=== PATIENT | female | born 1935 | race Caucasian/White ===

== ENCOUNTER 2017-12-17 13:47 | Emergency (ER) | payer MEDICARE ==
[2017-12-17] MEDS ORDERED: 0.9 % SODIUM CHLORIDE 1,000 ML BAG IV ONE (14:48)
[2017-12-17 14:50] LABS: INFLUENZA A NEGATIVE (NEGATIVE); INFLUENZA B NEGATIVE (NEGATIVE)
[2017-12-17 15:55] LABS: BASO % 0.4 % (0-6); EOS % 0.4 % (0-6); GRAN % 77.2 % (47-80); HEMATOCRIT 42.3 % (35.0-47.0); HEMOGLOBIN 14.8 gm/dl (11.6-16.0); LYMPH % 16.3 % (16-45); MEAN CELL VOLUME 84.9 fl (81-97); MEAN CORPUSCULAR HEMOGLOBIN 29.7 pg (27-33); MEAN PLATELET VOLUME 9.5 fl (7.4-10.4); MONO % 5.7 % (0-9); PLATELET COUNT 244 K/uL (130-400); RED BLOOD COUNT 4.98 M/uL (3.80-5.40); RED CELL DISTRIBUTION WIDTH 13.2 % (11.5-14.5); WHITE BLOOD COUNT W/O DIFF 7.2 K/uL (4.2-12.2)
[2017-12-17 16:08] LABS: BLOOD UREA NITROGEN 16 mg/dL (8-23); CREATININE 0.7 mg/dL (0.5-0.9); EST GLOMERULAR FILTRATION RATE > 60 mL/min
[2017-12-17 16:09] LABS: TOTAL PROTEIN 7.2 g/dL (6.6-8.7)
[2017-12-17 16:11] LABS: GLUCOSE,RANDOM 94 mg/dL (74-109)
[2017-12-17 16:13] LABS: ALT/SGPT 11 U/L (<33); AST/SGOT 18 U/L (10.0-35.0)
[2017-12-17 16:14] LABS: ALB/GLOB RATIO 1.5 (1.1-1.8); ALBUMIN 4.3 g/dL (4.0-5.0); ALKALINE PHOSPHATASE 59 U/L (35-104); LIPASE 22 U/L (13-60)
[2017-12-17] MEDS ORDERED: PROMETHAZINE HCL 6.25 MG in 0.9 % SODIUM CHLORIDE 100ML 100 ML IVPB ONE (16:14)
--- NOTE | 2017-12-17 16:14 | Emergency Department Record ---
History of Present Illness - General Chief complaint: Nausea, Vomiting, Diarrhea Stated complaint: COUGH,WEAKNESS,VOMITTING Time Seen by Provider: 12/17/17 14:40 Source: Patient Mode of Arrival: Ambulatory Limitations: No limitations - History of Present Illness Initial comments: pt had diarrhea for 3 wks then got better for a week then got worse again. she has also had n/v. MD complaint: Diarrhea, Nausea, Vomiting Severity: Mild Consistency: Getting worse Associated Symptoms: Malaise, Nausea/vomiting - Related Data Previous Rx's Medication Instructions Recorded Promethazine HCl [Phenergan] 12.5 mg PO BID #10 tablet 12/17/17 Allergies Allergy/AdvReac Type Severity Reaction Status Date / Time Sulfa (Sulfonamide Allergy HIVES Verified 12/17/17 14:36 Antibiotics) Travel Screening - Travel/Exposure Within Last 30 Days Have you traveled within the last 30 days?: No - Travel/Exposure Within Last Year Have you traveled outside the [place] in the last year?: No - Additonal Travel Details Have you been exposed to anyone with a communicable illness?: No Review of Systems Reviewed: No additional complaints except as noted below Constitutional: Reports: As per HPI. Denies: Chills, Fever, Malaise, Night sweats, Weakness, Weight change Eyes: Reports: As per HPI. Denies: Eye discharge, Eye pain, Photophobia, Vision change ENT: Reports: As per HPI. Denies: Congestion, Dental pain, Ear pain, Epistaxis , Hearing loss, Throat pain Respiratory: Reports: As per HPI. Denies: Cough, Dyspnea, Hemoptysis, Stridor, Wheezes Cardiovascular: Reports: As per HPI. Denies: Arrhythmia, Chest pain, Dyspnea on exertion, Edema, Murmurs, Orthopnea, Palpitations, Paroxysmal nocturnal dyspnea, Rheumatic Fever, Syncope Endocrine: Reports: As per HPI. Denies: Fatigue, Heat or cold intolerance, Polydipsia, Polyuria Gastrointestinal: Reports: As per HPI. Denies: Abdominal pain, Constipation, Diarrhea, Hematemesis, Hematochezia, Melena, Nausea, Vomiting Genitourinary: Reports: As per HPI. Denies: Abnormal menses, Discharge, Dyspareunia, Dysuria, Frequency, Hematuria, Incontinence, Retention, Urgency Musculoskeletal: Reports: As per HPI. Denies: Arthralgia, Back pain, Gout, Joint swelling, Myalgia, Neck pain Skin: Reports: As per HPI. Denies: Bruising, Change in color, Change in hair/ nails, Lesions, Pruritus, Rash Neurological: Reports: As per HPI. Denies: Abnormal gait, Confusion, Headache, Numbness, Paresthesias, Seizure, Tingling, Tremors, Vertigo, Weakness Psychiatric: Reports: As per HPI. Denies: Anxiety, Auditory hallucinations, Depression, Homicidal thoughts, Suicidal thoughts, Visual hallucinations Hematological/Lymphatic: Reports: As per HPI. Denies: Anemia, Blood Clots, Easy bleeding, Easy bruising, Swollen glands Past Medical History - SOCIAL HISTORY Smoking Status: Never smoker Alcohol Use: None Drug Use: None - RESPIRATORY Hx Respiratory Disorders: No - CARDIOVASCULAR Hx Cardio Disorders: Yes Hx Heart Attack: Yes (unsure) - NEURO Hx Neuro Disorders: No - GI Hx GI Disorders: Yes Hx Reflux: Yes - Hx Genitourinary Disorders: No - ENDOCRINE Hx Endocrine Disorders: No - MUSCULOSKELETAL Hx Musculoskeletal Disorders: Yes - PSYCH Hx Psych Problems: No - HEMATOLOGY/ONCOLOGY Hx Hematology/Oncology Disorders: No Family Medical History Any Significant Family History?: Yes Hx Cancer: Brother/Sister, Grandparents Hx Diabetes: Mother, Grandparents Physical Exam - General General Appearance: Alert, Oriented x3, Cooperative, Mild distress - Head Head exam: Normal inspection - Eye Eye exam: Normal appearance, PERRL, EOMI Pupils: Normal accommodation - ENT ENT exam: Normal exam, Mucous membranes moist, Normal external ear exam, Normal orophraynx Ear exam: Normal external inspection. negative: External canal tenderness Nasal Exam: Normal inspection. negative: Discharge, Sinus tenderness Mouth exam: Normal external inspection, Tongue normal Teeth exam: Normal inspection. negative: Dental caries Throat exam: Normal inspection. negative: Tonsillar erythema, Tonsillar exudate - Neck Neck exam: Normal inspection, Full ROM. negative: Tenderness - Respiratory Respiratory exam: Normal lung sounds bilaterally. negative: Respiratory distress - Cardiovascular Cardiovascular Exam: Regular rate, Normal rhythm, Normal heart sounds - GI/Abdominal GI/Abdominal exam: Soft, Normal bowel sounds. negative: Tenderness - Rectal Rectal exam: Deferred - exam: Deferred - Extremities Extremities exam: Normal inspection, Full ROM, Normal capillary refill. negative: Tenderness - Back Back exam: Reports: Normal inspection, Full ROM. Denies: Muscle spasm, Rash noted, Tenderness - Neurological Neurological exam: Alert, CN II-XII intact, Normal gait, Oriented X3 - Psychiatric Psychiatric exam: Normal affect, Normal mood - Skin Skin exam: Dry, Intact, Normal color, Warm Course Vital Signs 12/17/17 14:30 Temperature 98.5 F Pulse Rate [ 100 H Pulse Ox Probe] Respiratory 16 Rate Blood Pressure 128/96 [Left Arm] Pulse Ox 98 - Reevaluation(s) Reevaluation #1: 12/17/17 17:24 pt feels much better Medical Decision Making - Lab Data Result diagrams: 12/17/17 15:35 12/17/17 15:35 Lab Results 12/17/17 12/17/17 Range/Units 14:35 15:35 WBC 7.2 (4.2-12.2) K/uL RBC 4.98 (3.80-5.40) M/uL Hgb 14.8 (11.6-16.0) gm/dl Hct 42.3 (35.0-47.0) % MCV 84.9 (81-97) fl MCH 29.7 (27-33) pg MCHC 35.0 (32-36) g/dl RDW 13.2 (11.5-14.5) % Plt Count 244 (130-400) K/uL MPV 9.5 (7.4-10.4) fl Gran % 77.2 (47-80) % Lymphocytes % 16.3 (16-45) % Monocytes % 5.7 (0-9) % Eosinophils % 0.4 (0-6) % Basophils % 0.4 (0-6) % Influenza Type A Ag Negative (NEGATIVE) Influenza Type B Ag Negative (NEGATIVE) Disposition Disposition: Discharge Clinical Impression: Nausea & vomiting Qualifiers: Vomiting type: unspecified Vomiting Intractability: non-intractable Qualified Code(s): R11.2 - Nausea with vomiting, unspecified Diarrhea Qualifiers: Diarrhea type: unspecified type Qualified Code(s): R19.7 - Diarrhea, unspecified Disposition: Home, Self-Care Condition: (1) Good Instructions: Acute Nausea and Vomiting (ED), Acute Diarrhea (ED) Additional Instructions: follow up with family doctor. return sooner if worse. push fluids Prescriptions: Promethazine HCl [Phenergan] 12.5 mg PO BID #10 tablet Quality - Quality Measures Quality Measures: N/A - Blood Pressure Screening Does Patient Have Any of the Following: No Blood Pressure Classification: Pre-Hypertensive BP Reading Systolic Measurement: 160 Diastolic Measurement: 84 Screening for High Blood Pressure: < Pre-Hypertensive BP, F/U Documented > [ [id number]] Pre-Hypertensive Follow-up Interventions: Follow-up with rescreen every year.
[2017-12-17 16:49] LABS: URINE APPEARANCE CLEAR; URINE BILIRUBIN SMALL (NEGATIVE); URINE BLOOD SMALL (NEGATIVE); URINE COLOR YELLOW; URINE GLUCOSE (UA) NEGATIVE (NEGATIVE); URINE KETONE 40 mg/dL (NEGATIVE); URINE LEUKOCYTE ESTERASE TRACE (NEGATIVE); URINE NITRITE NEGATIVE (NEGATIVE); URINE PROTEIN TRACE (NEGATIVE); URINE UROBILINOGEN 0.2 E.U./dL (0.20 - 1.00)
[2017-12-17 16:59] LABS: URINE BACTERIA FEW
--- NOTE | 2017-12-18 07:57 | RADIOLOGY REPORT ---
EXAM: CHEST, TWO VIEWS HISTORY: NAUSEA AND VOMITING. TECHNIQUE: Two views of the chest were obtained. Comparison: 05/06/16. FINDINGS: The heart is not enlarged. There is a moderate sized hiatal hernia. The mediastinum otherwise is unremarkable. No infiltrate or vascular congestion identified. IMPRESSION: 1. MODERATE SIZED HIATAL HERNIA. 2. NO ACUTE CARDIAC OR PULMONARY ABNORMALITY. JOB NUMBER: [id number] MTDD
== END 2017-12-17 18:49 | disposition home or self-care (01) ==
LOC: ER 13:47
DX: R11.2 Nausea with vomiting, unspecified (principal); R19.7 Diarrhea, unspecified; I25.2 Old myocardial infarction
CPT/HCPCS: 71046; 80053; 81001; 83690; 85025; 87400; 96365; 99284; J2550; J7030

== ENCOUNTER 2018-09-02 13:32 | Inpatient (IN) | payer MEDICARE ==
[2018-09-02] MEDS ORDERED: 0.9% SODIUM CHLORIDE 250ML BAG IV ONE (14:14)
[2018-09-02] MEDS ORDERED: ONDANSETRON HCL IV 4 MG/2 ML VIAL IV ONE (14:14)
[2018-09-02 14:32] LABS: BASO % 0.3 % (0-6); EOS % 0.3 % (0-6); HEMATOCRIT 45.7 % (35.0-47.0); HEMOGLOBIN 16.1 gm/dl (11.6-16.0); LYMPH % 9.7 % (16-45); MEAN CELL VOLUME 86.9 fl (81-97); MEAN CORPUSCULAR HEMOGLOBIN 30.6 pg (27-33); MEAN CORPUSCULAR HGB CONC 35.2 g/dl (32-36); MEAN PLATELET VOLUME 9.2 fl (7.4-10.4); MONO % 3.4 % (0-9); PLATELET COUNT 253 K/uL (130-400); RED BLOOD COUNT 5.26 M/uL (3.80-5.40); RED CELL DISTRIBUTION WIDTH 13.3 % (11.5-14.5); URINE APPEARANCE CLEAR; URINE BILIRUBIN MODERATE (NEGATIVE); URINE BLOOD MODERATE (NEGATIVE); URINE COLOR YELLOW; URINE GLUCOSE (UA) NEGATIVE (NEGATIVE); URINE LEUKOCYTE ESTERASE NEGATIVE (NEGATIVE); URINE NITRITE NEGATIVE (NEGATIVE); URINE UROBILINOGEN 0.2 E.U./dL (0.20 - 1.00); WHITE BLOOD COUNT W/O DIFF 10.3 K/uL (4.2-12.2)
[2018-09-02 14:35] LABS: URINE KETONE 80 mg/dL (NEGATIVE)
[2018-09-02 14:44] LABS: URINE EPITHELIAL CELLS 0 - 2 (FEW); URINE WBC 0 - 2 (0-2/hpf)
[2018-09-02 14:46] LABS: BLOOD UREA NITROGEN 19 mg/dL (8-23); CREATININE 0.8 mg/dL (0.5-0.9); EST GLOMERULAR FILTRATION RATE > 60 mL/min
[2018-09-02 14:47] LABS: TOTAL PROTEIN 7.7 g/dL (6.6-8.7)
[2018-09-02 14:49] LABS: GLUCOSE,RANDOM 124 mg/dL (74-109)
[2018-09-02 14:51] LABS: ALB/GLOB RATIO 1.4 (1.1-1.8); ALBUMIN 4.5 g/dL (4.0-5.0); ALKALINE PHOSPHATASE 61 U/L (35-104); ALT/SGPT 14 U/L (<33); AST/SGOT 19 U/L (10.0-35.0); LIPASE 45 U/L (13-60)
[2018-09-02] MEDS ORDERED: PROMETHAZINE HCL 6.25 MG in 0.9 % SODIUM CHLORIDE 100ML 100 ML IVPB ONE (18:31)
--- NOTE | 2018-09-02 18:38 | Emergency Department Record ---
History of Present Illness - General Chief complaint: Nausea, Vomiting, Diarrhea Stated complaint: VOMITING,NAUSEA Time Seen by Provider: 09/02/18 13:56 Source: Patient, Family Mode of Arrival: Ambulatory Limitations: No limitations - History of Present Illness Initial comments: pt has been having abd pain,n,v all week. she feels like she is having cramps in her abd. she is very anxious. her daughter thinks it might be her gb as it runs in the family. MD complaint: Abdominal pain, Nausea, Vomiting Onset/Timin -: Days(s) Associated Abdominal Pain: Yes Location: Periumbilcal Quality: Aching, Cramping Consistency: Constant, Getting worse Improves with: None Worsens with: Eating Associated Symptoms: Loss of appetite, Nausea/vomiting, Weakness - Related Data Allergies Allergy/AdvReac Type Severity Reaction Status Date / Time Sulfa (Sulfonamide Allergy HIVES Verified 09/02/18 13:49 Antibiotics) Travel Screening - Travel/Exposure Within Last 30 Days Have you traveled within the last 30 days?: No - Travel/Exposure Within Last Year Have you traveled outside the [place] in the last year?: No - Additonal Travel Details Have you been exposed to anyone with a communicable illness?: No - Travel Symptoms Symptom Screening: None Review of Systems Reviewed: No additional complaints except as noted below Constitutional: Reports: As per HPI. Denies: Chills, Fever, Malaise, Night sweats, Weakness, Weight change Eyes: Reports: As per HPI. Denies: Eye discharge, Eye pain, Photophobia, Vision change ENT: Reports: As per HPI. Denies: Congestion, Dental pain, Ear pain, Epistaxis , Hearing loss, Throat pain Respiratory: Reports: As per HPI. Denies: Cough, Dyspnea, Hemoptysis, Stridor, Wheezes Cardiovascular: Reports: As per HPI. Denies: Arrhythmia, Chest pain, Dyspnea on exertion, Edema, Murmurs, Orthopnea, Palpitations, Paroxysmal nocturnal dyspnea, Rheumatic Fever, Syncope Endocrine: Reports: As per HPI. Denies: Fatigue, Heat or cold intolerance, Polydipsia, Polyuria Gastrointestinal: Reports: As per HPI, Abdominal pain, Nausea, Vomiting. Denies : Constipation, Diarrhea, Hematemesis, Hematochezia, Melena Genitourinary: Reports: As per HPI. Denies: Abnormal menses, Discharge, Dyspareunia, Dysuria, Frequency, Hematuria, Incontinence, Retention, Urgency Musculoskeletal: Reports: As per HPI. Denies: Arthralgia, Back pain, Gout, Joint swelling, Myalgia, Neck pain Skin: Reports: As per HPI. Denies: Bruising, Change in color, Change in hair/ nails, Lesions, Pruritus, Rash Neurological: Reports: As per HPI. Denies: Abnormal gait, Confusion, Headache, Numbness, Paresthesias, Seizure, Tingling, Tremors, Vertigo, Weakness Psychiatric: Reports: As per HPI. Denies: Anxiety, Auditory hallucinations, Depression, Homicidal thoughts, Suicidal thoughts, Visual hallucinations Hematological/Lymphatic: Reports: As per HPI. Denies: Anemia, Blood Clots, Easy bleeding, Easy bruising, Swollen glands Past Medical History - SOCIAL HISTORY Smoking Status: Never smoker Alcohol Use: None Drug Use: None - RESPIRATORY Hx Respiratory Disorders: Yes Hx Pneumonia: Yes - CARDIOVASCULAR Hx Cardio Disorders: Yes Hx Heart Attack: Yes (unsure) - NEURO Hx Neuro Disorders: No - GI Hx GI Disorders: Yes Hx Reflux: Yes Hx Hiatal Hernia: Yes - Hx Genitourinary Disorders: No - ENDOCRINE Hx Endocrine Disorders: No - MUSCULOSKELETAL Hx Musculoskeletal Disorders: Yes - PSYCH Hx Psych Problems: No - HEMATOLOGY/ONCOLOGY Hx Hematology/Oncology Disorders: No Family Medical History Any Significant Family History?: No Hx Cancer: Brother/Sister, Grandparents Hx Diabetes: Mother, Grandparents Physical Exam - General General Appearance: Alert, Oriented x3, Cooperative, Mild distress - Head Head exam: Normal inspection - Eye Eye exam: Normal appearance, PERRL, EOMI Pupils: Normal accommodation - ENT ENT exam: Normal exam, Mucous membranes dry, Normal external ear exam, Normal orophraynx Ear exam: Normal external inspection. negative: External canal tenderness Nasal Exam: Normal inspection. negative: Discharge, Sinus tenderness Mouth exam: Normal external inspection, Tongue normal Teeth exam: Normal inspection. negative: Dental caries Throat exam: Normal inspection. negative: Tonsillar erythema, Tonsillar exudate - Neck Neck exam: Normal inspection, Full ROM. negative: Tenderness - Respiratory Respiratory exam: Normal lung sounds bilaterally. negative: Respiratory distress - Cardiovascular Cardiovascular Exam: Normal rhythm, Normal heart sounds, Tachycardia - GI/Abdominal GI/Abdominal exam: Soft, Normal bowel sounds, Tenderness (diffusely and ruq) - Rectal Rectal exam: Deferred - exam: Deferred - Extremities Extremities exam: Normal inspection, Full ROM, Normal capillary refill. negative: Tenderness - Back Back exam: Reports: Normal inspection, Full ROM. Denies: Muscle spasm, Rash noted, Tenderness - Neurological Neurological exam: Alert, CN II-XII intact, Normal gait, Oriented X3 - Psychiatric Psychiatric exam: Normal affect, Normal mood - Skin Skin exam: Dry, Intact, Normal color, Warm Course Vital Signs 09/02/18 09/02/18 13:37 17:21 Temperature 97.7 F Pulse Rate 118 H Pulse Rate [ 110 H Pulse Ox Probe] Respiratory 20 16 Rate Blood Pressure 153/102 Blood Pressure 144/63 [Left Arm] Pulse Ox 99 96 - Reevaluation(s) Reevaluation #1: 09/02/18 18:46 pt continued to be uncomfortable and anxious w nausea Reevaluation #2: 09/02/18 18:47 ct shows early diverticulitis,, distended gb w mild intra and hepatic biliary ductal dilatation. no stones visualized. Medical Decision Making - Lab Data Result diagrams: 09/02/18 14:25 09/02/18 14:25 Lab Results 09/02/18 09/02/18 09/02/18 Range/Units 14:25 14:25 14:25 WBC 10.3 (4.2-12.2) K/uL RBC 5.26 (3.80-5.40) M/uL Hgb 16.1 H (11.6-16.0) gm/dl Hct 45.7 (35.0-47.0) % MCV 86.9 (81-97) fl MCH 30.6 (27-33) pg MCHC 35.2 (32-36) g/dl RDW 13.3 (11.5-14.5) % Plt Count 253 (130-400) K/uL MPV 9.2 (7.4-10.4) fl Neutrophils % 84.0 H (47-80) % Band Neutrophils % 0.0 (0-5) % Lymphocytes % 9.7 L (16-45) % Monocytes % 3.4 (0-9) % Eosinophils % 0.3 (0-6) % Basophils % 0.3 (0-6) % Lymphocytes 11.0 L (16-45) % Monocytes 4.0 (0-9) % Basophils 0.0 (0-6) % Eosinophil Count 0.0 (0-6) % Sodium 139 (136-145) mmol/L Potassium 4.3 (3.4-4.5) mmol/L Chloride 101 (98-107) mmol/L Carbon Dioxide 21.0 L (22-29) mmol/L Anion Gap 17.0 H (7-16) BUN 19 (8-23) mg/dL Creatinine 0.8 (0.5-0.9) mg/dL Estimated GFR > 60 mL/min Random Glucose 124 H (74-109) mg/dL Lactic Acid (0.5-2.2) mmol/L Calcium 9.5 (8.8-10.2) mg/dL Total Bilirubin 0.80 (0.2-1.0) mg/dL AST 19 (10.0-35.0) U/L ALT 14 (<33) U/L Alkaline Phosphatase 61 (35-104) U/L NT-Pro-B Natriuret Pep (<450) pg/mL Total Protein 7.7 (6.6-8.7) g/dL Albumin 4.5 (4.0-5.0) g/dL Globulin 3.2 (1.4-4.8) gm/dL Albumin/Globulin Ratio 1.4 (1.1-1.8) Lipase 45 (13-60) U/L Urine Color Yellow Urine Appearance Clear Urine pH 6.0 (5.0-8.0) Ur Specific [place] >= 1.030 (1.002-1.030) Urine Protein 30 mg/dl H (NEGATIVE) Urine Glucose (UA) Negative (NEGATIVE) Urine Ketones 80 mg/dl H (NEGATIVE) Urine Blood Moderate (NEGATIVE) Urine Nitrite Negative (NEGATIVE) Urine Bilirubin Moderate H (NEGATIVE) Urine Urobilinogen 0.2 (0.20 - 1.00) E.U./dL Ur Leukocyte Esterase Negative (NEGATIVE) Urine RBC 7 - 10 (NONE SEEN) Urine WBC 0 - 2 (0-2/hpf) Ur Epithelial Cells 0 - 2 (FEW) 09/02/18 09/02/18 Range/Units 14:25 14:25 WBC (4.2-12.2) K/uL RBC (3.80-5.40) M/uL Hgb (11.6-16.0) gm/dl Hct (35.0-47.0) % MCV (81-97) fl MCH (27-33) pg MCHC (32-36) g/dl RDW (11.5-14.5) % Plt Count (130-400) K/uL MPV (7.4-10.4) fl Neutrophils % (47-80) % Band Neutrophils % (0-5) % Lymphocytes % (16-45) % Monocytes % (0-9) % Eosinophils % (0-6) % Basophils % (0-6) % Lymphocytes (16-45) % Monocytes (0-9) % Basophils (0-6) % Eosinophil Count (0-6) % Sodium (136-145) mmol/L Potassium (3.4-4.5) mmol/L Chloride (98-107) mmol/L Carbon Dioxide (22-29) mmol/L Anion Gap (7-16) BUN (8-23) mg/dL Creatinine (0.5-0.9) mg/dL Estimated GFR mL/min Random Glucose (74-109) mg/dL Lactic Acid 1.4 (0.5-2.2) mmol/L Calcium (8.8-10.2) mg/dL Total Bilirubin (0.2-1.0) mg/dL AST (10.0-35.0) U/L ALT (<33) U/L Alkaline Phosphatase (35-104) U/L NT-Pro-B Natriuret Pep 65.99 (<450) pg/mL Total Protein (6.6-8.7) g/dL Albumin (4.0-5.0) g/dL Globulin (1.4-4.8) gm/dL Albumin/Globulin Ratio (1.1-1.8) Lipase (13-60) U/L Urine Color Urine Appearance Urine pH (5.0-8.0) Ur Specific [place] (1.002-1.030) Urine Protein (NEGATIVE) Urine Glucose (UA) (NEGATIVE) Urine Ketones (NEGATIVE) Urine Blood (NEGATIVE) Urine Nitrite (NEGATIVE) Urine Bilirubin (NEGATIVE) Urine Urobilinogen (0.20 - 1.00) E.U./dL Ur Leukocyte Esterase (NEGATIVE) Urine RBC (NONE SEEN) Urine WBC (0-2/hpf) Ur Epithelial Cells (FEW) Disposition Disposition: Admit Clinical Impression: Diverticulitis, Biliary colic Disposition: Still a Patient at [facility] Decision to Admit: Admit from ER Decision to Admit Date: 09/02/18 Decision to Admit Time: 18:50 Quality - Quality Measures Quality Measures: N/A - Blood Pressure Screening Does Patient Have Any of the Following: Active Dx of HTN Blood Pressure Classification: Hypertensive Reading Systolic Measurement: 153 Diastolic Measurement: 102 Screening for High Blood Pressure: Patient Exclusion, Hx of HTN [G9744]
[2018-09-02] MEDS ORDERED: TRAMADOL HCL 50 MG TABLET PO ONE (18:55)
[2018-09-02] MEDS ORDERED: 0.9 % SODIUM CHLORIDE 1000ML 1,000 ML IV PRN (19:18)
[2018-09-02] MEDS ORDERED: MORPHINE SULFATE 10 MG/ML VIAL IVP PRN (19:18)
[2018-09-02] MEDS: ACETAMINOPHEN 325 MG TAB PO PRN (20:20)
[2018-09-02] MEDS: AMPICILLIN SODIUM/SULBACTAM NA 3 G in 0.9 % SODIUM CHLORIDE 100ML 100 ML IVPB SCH (20:20)
[2018-09-02] MEDS: GABAPENTIN 300 MG CAPSULE PO SCH ×2 (20:26→21:06)
[2018-09-02] MEDS: TRAMADOL HCL 50 MG TABLET PO SCH (21:06)
[2018-09-03] MEDS: AMPICILLIN SODIUM/SULBACTAM NA 3 G in 0.9 % SODIUM CHLORIDE 100ML 100 ML IVPB SCH ×3 (03:23→18:53)
[2018-09-03] MEDS: PANTOPRAZOLE SODIUM 40 MG TABLET PO SCH (06:21)
[2018-09-03] MEDS: ONDANSETRON HCL IV 4 MG/2 ML VIAL IVP PRN ×2 (06:43→10:31)
[2018-09-03 06:45] LABS: BASO % 0.5 % (0-6); EOS % 1.8 % (0-6); GRAN % 63.9 % (47-80); HEMATOCRIT 40.5 % (35.0-47.0); HEMOGLOBIN 13.7 gm/dl (11.6-16.0); LYMPH % 26.8 % (16-45); MEAN CELL VOLUME 89.4 fl (81-97); MEAN CORPUSCULAR HEMOGLOBIN 30.2 pg (27-33); MEAN CORPUSCULAR HGB CONC 33.8 g/dl (32-36); MEAN PLATELET VOLUME 9.6 fl (7.4-10.4); PLATELET COUNT 198 K/uL (130-400); RED BLOOD COUNT 4.53 M/uL (3.80-5.40); RED CELL DISTRIBUTION WIDTH 13.6 % (11.5-14.5); WHITE BLOOD COUNT W/O DIFF 6.5 K/uL (4.2-12.2)
[2018-09-03 07:09] LABS: ALB/GLOB RATIO 1.3 (1.1-1.8); ALBUMIN 3.5 g/dL (4.0-5.0); ALKALINE PHOSPHATASE 49 U/L (35-104); ALT/SGPT 11 U/L (<33); AST/SGOT 17 U/L (10.0-35.0); BLOOD UREA NITROGEN 13 mg/dL (8-23); CREATININE 0.7 mg/dL (0.5-0.9); EST GLOMERULAR FILTRATION RATE > 60 mL/min; GLUCOSE,RANDOM 80 mg/dL (74-109); TOTAL PROTEIN 6.3 g/dL (6.6-8.7)
--- NOTE | 2018-09-03 07:52 | CT SCAN REPORT ---
EXAM: CT SCAN OF THE ABDOMEN AND PELVIS WITH CONTRAST HISTORY: DIFFUSE ABDOMINAL PAIN WITH NAUSEA AND LOOSE STOOLS. SICK FOR THE PAST SIX DAYS. TECHNIQUE: Standard CT imaging of the abdomen and pelvis was performed with contrast. 100 ml of Omnipaque 300 were administered. Comparison: None. FINDINGS: There is mild dependent atelectasis at both lung bases. Coronary artery calcifications are present. There is a moderate sized hiatal hernia. A 9 mm cyst is present at the dome of the liver. The gallbladder is distended. There is mild intra and extrahepatic biliary ductal dilatation. There are calcified stones or pericholecystic inflammatory changes. The common bile duct measures up to 1 cm in diameter. There is no visible mass. The pancreas is normal. The spleen is normal size. A peripherally calcified splenic artery aneurysm is present and measures 1.4 x 1.2 cm. The adrenal glands are normal in size. There are tiny cortical cysts within both kidneys. A 0.7 cm hypodense area at the inferior pole of the right kidney measures greater density than expected for a simple cyst. This may simply represent a proteinaceous cyst. Follow-up is recommended. A 2 cm exophytic cyst is also noted at the lower pole of the right kidney. There is no acute urinary tract pathology. Atherosclerotic changes are present within the abdominal aorta with no aneurysm or dissection. There is no retroperitoneal lymphadenopathy. There are scattered diverticula throughout the colon and greatest within the sigmoid region. There is mild inflammation of diverticula within the proximal transverse colon region with adjacent fat stranding and mild wall thickening. The appearance is suspicious for developing acute diverticulitis. Wall thickening within the sigmoid region is likely artifactual due to incomplete distention. There are no surrounding inflammatory changes. There is no pneumoperitoneum or ascites. The uterus is surgically absent. The urinary bladder is normal. There are no acute osseous abnormalities. There is Grade 1 spondylolisthesis of L4 on L5 which appears degenerative in nature. Severe disk space narrowing is also noted at the L4-L5 level. IMPRESSION: 1. DISTENDED GALLBLADDER WITH MILD INTRA AND EXTRAHEPATIC BILIARY DUCTAL DILATATION OF UNCERTAIN ETIOLOGY. THESE FINDINGS COULD BE FURTHER ASSESSED WITH MRCP OR ERCP. 2. DIFFUSE COLONIC DIVERTICULOSIS WITH SUSPECTED MILD ACUTE DIVERTICULITIS INVOLVING THE PROXIMAL TRANSVERSE COLON REGION. WALL THICKENING THROUGHOUT THE REMAINDER OF THE COLON IS BELIEVED ARTIFACTUAL DUE TO INCOMPLETE DISTENTION. 3. A 7 MM MILDLY HYPERDENSE AREA IS PRESENT AT THE INFERIOR POLE OF THE RIGHT KIDNEY. THIS MAY SIMPLY REPRESENT A PROTEINACEOUS CYST. THIS COULD BE FURTHER ASSESSED WITH MRI OR CT FOLLOW-UP. 4. ADDITIONAL SIMPLE BILATERAL RENAL CYSTS AND HEPATIC CYSTS. 5. CALCIFIED SPLENIC ARTERY ANEURYSM. 6. ADDITIONAL CHRONIC FINDINGS ABOVE. JOB NUMBER: [id number] MTDD
[2018-09-03] MEDS ORDERED: NITROGLYCERIN 0.4MG SL TABLET #25 BTL SL ONE (09:53)
[2018-09-03] MEDS ORDERED: HYDROMORPHONE HCL 2 MG/ML VIAL IVP PRN (10:18)
[2018-09-03] MEDS: DILTIAZEM 240 MG CAP CR PO SCH (10:56)
[2018-09-03] MEDS: TRAMADOL HCL 50 MG TABLET PO SCH ×2 (10:56→21:33)
[2018-09-03] MEDS: GABAPENTIN 300 MG CAPSULE PO SCH ×3 (10:57→21:32)
[2018-09-03] MEDS: ASPIRIN 81 MG TABEC PO SCH (11:42)
[2018-09-03] MEDS ORDERED: DEXAMETHASONE 4 MG/ML 1ML VIAL IVP ONE (14:00)
[2018-09-03] MEDS ORDERED: GLYCOPYRROLATE 0.2 MG/ML ML IV ONE (14:00)
[2018-09-03] MEDS ORDERED: ROCURONIUM BROMIDE 50MG/5ML VIAL IV ONE (14:00)
[2018-09-03] MEDS ORDERED: LIDOCAINE 2% MDV (20MG/ML) 20ML VIAL IV ONE (14:00)
[2018-09-03] MEDS ORDERED: ESMOLOL HCL 100 MG/10 ML ML IVP ONE (14:00)
[2018-09-03] MEDS ORDERED: NEOSTIGMINE 1 MG/1 ML,10ML VIAL IV ONE (14:00)
[2018-09-03] MEDS ORDERED: FENTANYL PF 100MCG/2ML VIAL IV ONE ×2 (14:00→16:03)
[2018-09-03] MEDS ORDERED: ONDANSETRON HCL IV 4 MG/2 ML VIAL IVP ONE (14:00)
[2018-09-03] MEDS ORDERED: SEVOFLURANE 250 ML INH ONE (14:00)
[2018-09-03] MEDS ORDERED: PROPOFOL 10 MG/ML VIAL IV ONE (14:00)
[2018-09-03] MEDS ORDERED: SUCCINYLCHOLINE 20 MG/ML 10ML IVP ONE (14:00)
--- NOTE | 2018-09-03 15:18 | History & Physical ---
History of Present Illness - Date of Service Date of Service for History & Physical: 09/03/18 - History of Present Illness Admitting Diagnosis: diverticulitis, biliary colic History of Present Illness: pt has been having abd pain,n,v all week. she feels like she is having cramps in her abd. she is very anxious. her daughter thinks it might be her gb as it runs in the family. Her history includes: pneumonia, possible SD hx (pt. unsure), GERD, hiatal hernia. In the ED, her vitals were: BP 153/102, T 97.7F, HR 118, RR 20, 99% on room air. Abd CT showed early diverticulitis, distended gallbladder with mild intra and hepatic biliary ductal dilatation, no stones. Pt. was admitted for IV antibiotics for diverticulitis, NPO at midnight, abdominal ultrasound ordered for the am. Dr. Jiménez was consulted for surgical evaluation. 09/03/18: 1000- Dr. Jiménez assessed pt. this morning and took her to OR for laparoscopic cholecystectomy. Surgery went as planned. Pt. returned to her room from PACU. She reports some abdominal pain (likely retained gas bubble from laproscope). Her vitals have remained stable. Per Dr. Jiménez, pt. can d/c home either tonight or tomorrow morning, when her pain is controlled. Ultram ordered for pain management. Clear fluid diet ordered. Travel Screening - Travel/Exposure Within Last 30 Days Have you traveled within the last 30 days?: No - Travel/Exposure Within Last Year Have you traveled outside the [place] in the last year?: No - Additonal Travel Details Have you been exposed to anyone with a communicable illness?: No - Travel Symptoms Symptom Screening: None Review of Systems Constitutional: Reports: As per HPI. Denies: Chills, Fever, Malaise, Night sweats, Weakness, Weight change Eyes: Reports: As per HPI. Denies: Eye discharge, Eye pain, Photophobia, Vision change ENT: Reports: As per HPI. Denies: Congestion, Dental pain, Ear pain, Epistaxis , Hearing loss, Throat pain Respiratory: Reports: As per HPI. Denies: Cough, Dyspnea, Hemoptysis, Stridor, Wheezes Cardiovascular: Reports: As per HPI. Denies: Arrhythmia, Chest pain, Dyspnea on exertion, Edema, Murmurs, Orthopnea, Palpitations, Paroxysmal nocturnal dyspnea, Rheumatic Fever, Syncope Endocrine: Reports: As per HPI. Denies: Fatigue, Heat or cold intolerance, Polydipsia, Polyuria Gastrointestinal: Reports: As per HPI, Abdominal pain, Nausea, Vomiting. Denies : Constipation, Diarrhea, Hematemesis, Hematochezia, Melena Genitourinary: Reports: As per HPI. Denies: Abnormal menses, Discharge, Dyspareunia, Dysuria, Frequency, Hematuria, Incontinence, Retention, Urgency Musculoskeletal: Reports: As per HPI. Denies: Arthralgia, Back pain, Gout, Joint swelling, Myalgia, Neck pain Skin: Reports: As per HPI. Denies: Bruising, Change in color, Change in hair/ nails, Lesions, Pruritus, Rash Neurological: Reports: As per HPI. Denies: Abnormal gait, Confusion, Headache, Numbness, Paresthesias, Seizure, Tingling, Tremors, Vertigo, Weakness Psychiatric: Reports: As per HPI. Denies: Anxiety, Auditory hallucinations, Depression, Homicidal thoughts, Suicidal thoughts, Visual hallucinations Hematological/Lymphatic: Reports: As per HPI. Denies: Anemia, Blood Clots, Easy bleeding, Easy bruising, Swollen glands Past Medical History - SOCIAL HISTORY Smoking Status: Never smoker Alcohol Use: None - RESPIRATORY Hx Respiratory Disorders: Yes Hx Pneumonia: Yes - CARDIOVASCULAR Hx Cardio Disorders: Yes Hx Heart Attack: Yes (unsure) - NEURO Hx Neuro Disorders: No - GI Hx GI Disorders: Yes Hx Reflux: Yes Hx Hiatal Hernia: Yes - Hx Genitourinary Disorders: No - ENDOCRINE Hx Endocrine Disorders: No - MUSCULOSKELETAL Hx Musculoskeletal Disorders: Yes - PSYCH Hx Psych Problems: No - HEMATOLOGY/ONCOLOGY Hx Hematology/Oncology Disorders: No Family Medical History Any Significant Family History?: No Hx Cancer: Brother/Sister, Grandparents Hx Diabetes: Mother, Grandparents H&P Meds/Allergies - Allergies Allergies: Allergies Allergy/AdvReac Type Severity Reaction Status Date / Time Sulfa (Sulfonamide Allergy HIVES Verified 09/02/18 13:49 Antibiotics) - Active Medications Active Medications: Current Medications Acetaminophen (Tylenol 325mg) 650 mg PO Q6H PRN PRN Reason: PAIN - MILD(1-4)/FEVER Last Admin: 09/02/18 20:20 Dose: 650 mg Aspirin (Ecotrin (Ec)) 81 mg PO DAILY [facility] Last Admin: 09/03/18 11:42 Dose: Not Given Diltiazem HCl (Cardizem Cd) 240 mg PO DAILY [facility] Last Admin: 09/03/18 10:56 Dose: 240 mg Gabapentin (Neurontin) 600 mg PO TID [facility] Last Admin: 09/03/18 10:57 Dose: 600 mg Hydromorphone HCl (Dilaudid) 1 mg IVP Q4H PRN PRN Reason: PAIN - MOD TO SEVERE (5-10) Last Admin: 09/03/18 10:32 Dose: 2 mg Sodium Chloride () 1,000 mls @ 100 mls/hr IV .Q10H PRN PRN Reason: LARGE VOLUME IV Ampicillin Sodium/Sulbactam (Sodium 3 g/ Sodium Chloride) 100 mls @ 200 mls/hr IVPB Q8H [facility] Last Infusion: 09/03/18 11:30 Dose: Infused Morphine Sulfate (Morphine Sulfate) 1 mg IVP Q4H PRN PRN Reason: ABDOMINAL PAIN Ondansetron HCl (Zofran) 4 mg IVP Q6H PRN PRN Reason: NAUSEA Last Admin: 09/03/18 10:31 Dose: 4 mg Pantoprazole Sodium (Protonix) 40 mg PO DAILYAC [facility] Last Admin: 09/03/18 06:21 Dose: 40 mg Tramadol HCl (Ultram) 50 mg PO BID [facility] Last Admin: 09/03/18 10:56 Dose: 50 mg Physical Exam - Vital Signs Vital Signs: Vital Signs - Last 24 Hrs Temp Pulse Pulse Resp BP BP Pulse Ox 09/03/18 14:15 97.7 F 83 16 116/56 99 09/03/18 11:55 75 16 128/61 98 09/03/18 11:00 82 16 123/65 97 09/03/18 10:45 97.5 F L 82 18 135/46 94 L 09/03/18 10:30 97.5 F L 71 18 173/62 97 09/03/18 10:10 97.4 F L 69 20 148/61 96 09/03/18 09:00 20 09/03/18 08:00 98.6 F 79 16 134/59 99 09/03/18 06:00 97.5 F L 80 18 109/60 96 09/02/18 19:50 18 09/02/18 19:18 97.6 F 78 20 166/66 96 09/02/18 18:53 90 20 135/82 99 09/02/18 17:21 110 H 16 144/63 96 - General General Appearance: Alert, Oriented x3, Cooperative, Mild distress Limitations: No limitations - Head Head exam: Normal inspection - Eye Eye exam: Normal appearance, PERRL, EOMI Pupils: Normal accommodation - ENT ENT exam: Normal exam, Mucous membranes dry, Normal external ear exam, Normal orophraynx Ear exam: Normal external inspection. negative: External canal tenderness Nasal Exam: Normal inspection. negative: Discharge, Sinus tenderness Mouth exam: Normal external inspection, Tongue normal Teeth exam: Normal inspection. negative: Dental caries Throat exam: Normal inspection. negative: Tonsillar erythema, Tonsillar exudate - Neck Neck exam: Normal inspection, Full ROM. negative: Tenderness - Respiratory Respiratory exam: Normal lung sounds bilaterally. negative: Respiratory distress - Cardiovascular Cardiovascular Exam: Normal rhythm, Normal heart sounds, Tachycardia - GI/Abdominal GI/Abdominal exam: Soft, Normal bowel sounds, Tenderness (diffusely and ruq) - Rectal Rectal exam: Deferred - exam: Deferred - Extremities Extremities exam: Normal inspection, Full ROM, Normal capillary refill. negative: Tenderness - Back Back exam: Reports: Normal inspection, Full ROM. Denies: Muscle spasm, Rash noted, Tenderness - Neurological Neurological exam: Alert, CN II-XII intact, Normal gait, Oriented X3 - Psychiatric Psychiatric exam: Normal affect, Normal mood - Skin Skin exam: Dry, Intact, Normal color, Warm Results - Labs Result Diagrams: 09/03/18 06:21 09/03/18 06:21 Labs Last 24 Hours: Laboratory Results - last 24 hr 09/02/18 09/02/18 09/03/18 14:25 14:25 06:21 WBC 6.5 RBC 4.53 Hgb 13.7 Hct 40.5 MCV 89.4 MCH 30.2 MCHC 33.8 RDW 13.6 Plt Count 198 MPV 9.6 Gran % 63.9 Neutrophils % 84.0 H Band Neutrophils % 0.0 Lymphocytes % 26.8 Monocytes % 7.0 Eosinophils % 1.8 Basophils % 0.5 Lymphocytes 11.0 L Monocytes 4.0 Basophils 0.0 Eosinophil Count 0.0 Sodium Potassium Chloride Carbon Dioxide Anion Gap BUN Creatinine Estimated GFR Random Glucose Calcium Total Bilirubin AST ALT Alkaline Phosphatase NT-Pro-B Natriuret Pep 65.99 Total Protein Albumin Globulin Albumin/Globulin Ratio 09/03/18 06:21 WBC RBC Hgb Hct MCV MCH MCHC RDW Plt Count MPV Gran % Neutrophils % Band Neutrophils % Lymphocytes % Monocytes % Eosinophils % Basophils % Lymphocytes Monocytes Basophils Eosinophil Count Sodium 143 Potassium 3.8 Chloride 109 H Carbon Dioxide 21.0 L Anion Gap 13.0 BUN 13 Creatinine 0.7 Estimated GFR > 60 Random Glucose 80 Calcium 8.0 L Total Bilirubin 0.50 AST 17 ALT 11 Alkaline Phosphatase 49 NT-Pro-B Natriuret Pep Total Protein 6.3 L Albumin 3.5 L Globulin 2.8 Albumin/Globulin Ratio 1.3 - Imaging and Cardiology CT scan - abdomen Status: Report reviewed (distended gallbladder with mild intra and extrahepatic biliary ductal dilation, mild diverticulitis of proximal transverse colon, 7mm right renal cyst) VTE H&P Assessment - Risk for VTE Risk for VTE: Yes Risk Level: Low Risk Assessment Date: 09/03/18 Risk Assessment Time: 15:21 VTE Orders Placed or Will Be Placed: Yes Plan - Inpatient Certification Inpatient Certification: Admit to inpatient care: Based on my medical assessment, after consideration of patient's risk factors (age, co-morbidities and patient presenting symptoms and acuity), I expect that this patient will remain in the hospital greater than or equal to two midnights and that the services needed warrant inpatient care because: Patient Risk Factors: [age, co-morbidities] Estimated length of stay: [48-96 hours] The patient may reasonably be expected to be discharged or transferred to a hospital within 96 hours after admission to [facility]. Services needed: [General surgery consult, iv antibioticsw] Post hospital care (if known): [] I certify that my determination is in accordance with my understanding of Medicare requirements for reasonable and necessary inpatient services. 09/03/18 15:21 - Detailed Diagnosis and Plan (1) Cholecystitis Current Visit: Yes Status: Acute Base Code: K81.9 - CHOLECYSTITIS, UNSPECIFIED Comment: 09/03/18: -Abd CT: distended gallbladder with mild intra and extrahepatic biliary ductal dilation, mild diverticulitis of proximal transverse colon, 7mm right renal cyst -Lap neli performed this morning with Dr. Jiménez (2) Diverticulitis Current Visit: Yes Status: Acute Base Code: K57.92 - DVTRCLI OF INTEST, PART UNSP, W/O PERF OR ABSCESS W/O BLEED Comment: 09/03/18: -mild diverticulitis of proximal transverse colon on abd CT -Lap neli performed today by Dr. Jiménez -Continue unasyn 3g q8h -clear liquid diet -zofran 4mg IV q6h prn nausea (3) DVT prophylaxis Current Visit: No Status: Acute Base Code: [id number] - Comment: 05/09/16- -Patient at high risk for DVT with age and restricted mobility and post-op neli -lovenox 40mg SQ ordered qhs for prophylaxis (4) DNR (do not resuscitate) Current Visit: No Status: Acute Base Code: Z66 - DO NOT RESUSCITATE Comment: 09/03/18: -Pt. is a DNR
[2018-09-03] MEDS ORDERED: BUPIVACAINE 0.25% W/EPI MPF 30ML VIAL IVP ONE (16:00)
[2018-09-03] MEDS ORDERED: ACETAMINOPHEN 1,000 MG/100 ML BTL IV ONE (16:03)
[2018-09-03] MEDS: ACETAMINOPHEN 325 MG TAB PO PRN (17:49)
[2018-09-03] MEDS ORDERED: ENOXAPARIN 40 MG/0.4 ML SYR SQ SCH (22:00)
[2018-09-04] MEDS: AMPICILLIN SODIUM/SULBACTAM NA 3 G in 0.9 % SODIUM CHLORIDE 100ML 100 ML IVPB SCH (03:05)
[2018-09-04] MEDS: PANTOPRAZOLE SODIUM 40 MG TABLET PO SCH (06:03)
[2018-09-04 07:02] LABS: HEMATOCRIT 38.1 % (35.0-47.0); HEMOGLOBIN 12.5 gm/dl (11.6-16.0); MEAN CELL VOLUME 90.5 fl (81-97); MEAN CORPUSCULAR HEMOGLOBIN 29.7 pg (27-33); MEAN CORPUSCULAR HGB CONC 32.8 g/dl (32-36); MEAN PLATELET VOLUME 9.8 fl (7.4-10.4); PLATELET COUNT 168 K/uL (130-400); RED BLOOD COUNT 4.21 M/uL (3.80-5.40); RED CELL DISTRIBUTION WIDTH 13.8 % (11.5-14.5); WHITE BLOOD COUNT W/O DIFF 8.6 K/uL (4.2-12.2)
[2018-09-04 07:27] LABS: ALB/GLOB RATIO 1.4 (1.1-1.8); ALBUMIN 3.2 g/dL (4.0-5.0); ALKALINE PHOSPHATASE 124 U/L (35-104); ALT/SGPT 332 U/L (<33); AST/SGOT 379 U/L (10.0-35.0); BLOOD UREA NITROGEN 8 mg/dL (8-23); CREATININE 0.6 mg/dL (0.5-0.9); EST GLOMERULAR FILTRATION RATE > 60 mL/min; GLUCOSE,RANDOM 91 mg/dL (74-109); TOTAL PROTEIN 5.5 g/dL (6.6-8.7)
--- NOTE | 2018-09-04 08:13 | Discharge Note ---
VTE H&P Assessment - Risk for VTE Risk for VTE: Yes Risk Level: Low Risk Assessment Date: 09/03/18 Risk Assessment Time: 15:21 VTE Orders Placed or Will Be Placed: Yes Discharge Medications - Discharge Medications Prescriptions: Tramadol HCl [Ultram] 50 mg PO Q8H PRN #20 tab PRN Reason: Abdominal Pain Home Medications: Ambulatory Orders Aspirin [Adult Low Dose Aspirin EC] 81 mg PO DAILY 05/06/16 [Last Taken 05/05/16 ] Diltiazem HCl [Cardizem Cd] 240 mg PO DAILY 05/06/16 [Last Taken 05/05/16] Gabapentin [Neurontin] 600 mg PO TID 05/06/16 [Last Taken 12/15/17] Omeprazole [Prilosec] 20 mg PO DAILY 05/06/16 [Last Taken 05/05/16] Tramadol HCl [Ultram] 50 mg PO BID 05/06/16 [Last Taken 12/16/17] Acetaminophen [Tylenol 325Mg] 650 mg PO Q6H PRN tablet 09/04/18 [Last Taken Unknown] Tramadol HCl [Ultram] 50 mg PO Q8H PRN #20 tab 09/04/18 [Last Taken Unknown] Discharge Note - Date Date of Discharge Note: 09/04/18 Disposition: Home, Self-Care Condition: (1) Good Additional Instructions: follow up with Dr farah in 2 weeks follow up with Dr. Evangelista Lovett in one week use ultram every 8 PRN for abdominal pain diet as tolerated Forms: Patient Portal Access Activity at Discharge: Increase Activity as Tolerated Diet at Discharge: Low Fat, Low Cholesterol
[2018-09-04] MEDS: DILTIAZEM 240 MG CAP CR PO SCH (09:21)
[2018-09-04] MEDS: ASPIRIN 81 MG TABEC PO SCH (09:22)
[2018-09-04] MEDS: TRAMADOL HCL 50 MG TABLET PO SCH (09:22)
[2018-09-04] MEDS: GABAPENTIN 300 MG CAPSULE PO SCH (09:23)
--- NOTE | 2018-09-04 11:15 | Rehab Evaluation ---
Patient Information - Patient Information Diagnosis: Diverticulitis Ordered Treatment: PT Evaluate and Treat Status: Initial Evaluation Surgery: Yes Date of Surgery: 09/03/18 Past Medical/Surgical Hx: PAST MEDICAL/SURGICAL HISTORY Surgery to Affected Area? No Recent Surgery? Past Surgical History hiatal hernia repair, knee replacement PMH - Respiratory Hx Respiratory Disorders Yes Hx Pneumonia Yes PMH - Cardiovascular Hx Cardiovascular Disorders Yes Hx Heart Attack Yes: unsure PMH - Neuro Hx Neurological Disorders No PMH - GI Hx Gastrointestinal Disorders Yes Hx Gastroesophageal Reflux Yes Hx Hiatal Hernia Yes PMH - Hx Genitourinary Disorders No Patient No PMH - Endocrine Hx Endocrine Disorders No PMH - Musculoskeletal Hx Musculoskeletal Disorders Yes PMH - Psych Hx Psychiatric Problems No PMH - Hematology/Oncology Hx Hematology/Oncology No Disorders Premorbid Status: Detail (The patient was independent with all mobility prior to surgery. 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 The patient was referred to PT for assessment of need of Home health PT services) Social History: Detail (The patient lives in a two story home with spouse, daughter and son-in-law. The patient lives on first floor. The house enterance has 3 to 4 steps with one railing. The bathroom is equipped with a tub/shower combination with tub seat and grab bar; toilet is standard without grab bars. The patient has a wheeled walker at home but ambulates without device.) Precautions: Terry, Fall - Time With Patient Total Time Spent With Patient (Min): 30 Treatment Procedures: Detail (Initial Evaluation) Subjective Information - Subjective Information Per Patient (The patient has no pain complaints.) Objective Data - Mental Status Patient Orientation: Oriented x3 - Visual Perception Appears within normal limits for therapeutic activities - ROM Within normal limits - Strength/Tone Within normal limits (The patient's UE strength is 5/5. The patient's LE strength is 5/5 except for knee flexors which are 4+/5.) - Bed Mobility Independent (supine to and from sit) - Transfers Independent (The patient was independent with sit to and from stand transfer) - Balance Balance Sitting: Good Balance Standing: Good - Sensation Deficit (The patient has diminished sensation to light touch bilateral LE's from below the knees to toes due to neuropathy per patient's report.) - Gait Detail (The patient ambulated independently without device a distance of 65 feet x 1. The patient's gait pattern was characterized by decreased heel to toe weight transfer probably due to neuropathy and slight unsteadiness.) Patient Education - Patient Education Teaching Topic: Precautions (Discussed with patient fall prevention techniques in home environment due to diminished LE sensation. The patient had good unstanding of fall prevention techniques.) Response: Verbalize Understanding Teaching Method: Discussion Teaching Recipient: Patient Barriers To Learning: Age Related Problem List - Problem List Physical Therapy Problem List: Detail (1) Diminished sensation bilateral LE's 2 ) slight unsteadiness with gait) Goals - Goals Physical Therapy Goals: The patient was instructed in fall prevention measures at home and safety precautions with ambulation. All PT goals were met. Prognosis - Prognosis Good Plan - Plan Physical Therapy Plan: The patient was discharged from [facility]. No further PT services are required.
--- NOTE | 2018-09-05 10:40 | Medical Records Consult ---
DATE OF SERVICE: 09/03/2018. DATE OF CONSULTATION: 09/03/2018. REASON FOR CONSULTATION: Abdominal pain. HISTORY OF CHIEF COMPLAINT: Patient is an 83-year-old female who states that she has had a week's worth history of abdominal pain. She describes this as in her upper abdomen, shooting under her ribs on the right. She states this is worse after she eats, and she describes this as a cramping sensation. Her daughter brought her in due to the fact she felt this could be her gallbladder. She states she has had a remote history of this in the past. Denies any blood in her stools, significant weight loss, or other. PAST MEDICAL HISTORY: Significant for hypertension, pain, GERD. PAST SURGICAL HISTORY: Laparoscopic hiatal herniorrhaphy with fundoplication. MEDICATIONS: Include: 1. Cardizem. 2. Neurontin. 3. Zofran. 4. Protonix. 5. Ultram. ALLERGIES: SULFA. SOCIAL HISTORY: She denies any tobacco or alcohol use. PHYSICAL EXAMINATION: VITAL SIGNS: Stable. She is afebrile. HEART: Regular. LUNGS: Clear. ABDOMEN: Soft. There is right upper quadrant pain with deep palpation. There are well-healed port site scars noted. DIAGNOSTIC DATA: Laboratory values were reviewed. Her white count is normal. Bilirubin level is normal. CT scan was done, which did show findings consistent with a distended gallbladder with dilated intrahepatic and extrahepatic ductal dilatation. However, her bilirubin is normal. Also findings consistent with possible early transverse colon diverticulitis. IMPRESSION: Abdominal pain, most likely secondary to biliary colic. We did discuss cholecystectomy versus medical management. She desires surgical intervention. Risks include bleeding, infection, ductal injury, possible conversion to open, postoperative bile leak. This will be scheduled for this morning. Thank you for this referral. BIRDIE
--- NOTE | 2018-09-05 11:50 | Discharge Summary ---
DATE OF DISCHARGE: DISCHARGE DIAGNOSES: 1. Acute cholecystitis. 2. Gallbladder removal. 3. CT scan of the abdomen showing some signs of diverticulitis, however, clinically no evidence of that. 4. History of hypertension. 5. History of GERD. ATTENDING PHYSICIAN: Gerard Ac D.O. FAMILY PHYSICIAN: Evangelista Lovett M.D. SURGEON: Antolin Jiménez D.O. REASON FOR HOSPITALIZATION: Right upper quadrant abdominal pain, CT scan showing distended gallbladder and some signs of diverticulitis. The abdominopelvic CT showing extended gallbladder and mild intrahepatic and extrahepatic biliary ductal dilation of uncertain etiology. This finding could be further assessed with MRCP or ERCP. Diffuse colon diverticulosis with suspected mild acute diverticulitis involving the proximal transverse colon region. Wall thickening throughout the remainder of the colon could be artifactual due to incomplete distention. There are 7 mm mildly hyperdense areas persisting in the inferior pole of the right kidney. This may simply represent a proteinaceous cyst. This could be further assessed with MRCP followup. Additional simple by the renal cyst and hepatic cyst. Calcified splenic artery aneurysm. Additional chronic findings as above. LABORATORY: The liver enzymes were elevated on the day of discharge. Her AST was 379. ALT is 332. Alkaline phosphatase is 124. Total bilirubin is normal at 0.5. WBC is 8,600. Hemoglobin is 12.4. Segs are 82. Lymphs are 13%. BUN on the day of discharge 8, creatinine 0.6. THERAPY PROVIDED/RESPONSE TO THERAPY: Patient had her gallbladder removed by Dr. Jiménez. She is feeling much better. She is eating food nicely. She is feeling well. No abdominal pain. No leg pain. No signs of jaundice. HOSPITAL COURSE: Unremarkable. CONDITION AT DISCHARGE: Much improved. We will stop the [employer], because at this point it looks more like acute cholecystitis, and she is not showing any signs of white collar fever. We will monitor clinically at home. DISCHARGE INSTRUCTIONS: Follow up with Dr. Evangelista Lovett in 1 week. Follow up with Dr. Jiménez in 2 weeks. Any difficulties, return to the emergency department. Ultram 50 mg every 8 hours p.r.n. for pain. Continue her home medications of Prilosec 20 mg a day, Neurontin 600 mg t.i.d., Cardizem CD 240 mg a day. MTDD
--- NOTE | 2018-09-06 09:40 | Operative Note ---
DATE OF SERVICE: 09/03/2018. DATE OF SURGERY: 09/03/2018. Surgeon: Antolin Jiménez DO. REFERRING PHYSICIAN: Lamont Winn Jr., MD. PREOPERATIVE DIAGNOSIS: Cholecystitis. POSTOPERATIVE DIAGNOSIS: Cholecystitis. OPERATION: Laparoscopic cholecystectomy. Indication: Patient is an 83-year-old female who is having ongoing right subcostal postprandial pain. She was worked up in the ER, which did show findings consistent with a distended gallbladder. She also had findings possibly of diverticulitis. Her clinical history is more of a gallbladder-type picture. We did discuss cholecystectomy. Risks, benefits, and alternatives were discussed. We did discuss this versus medical management. She desired surgical intervention. Risks include bleeding, infection, ductal injury, possible conversion to open, postoperative bile leak. She understood this fully. PROCEDURE: Therefore, after all questions were answered, she was taken to the operating room and placed in supine position. General anesthesia was administered per Department of Anesthesia. Patient's abdomen was prepped and draped in usual fashion. The infraumbilical region was anesthetized with a total of 5 mL of 0.25% Sensorcaine with epinephrine. A 2 cm infraumbilical incision was made. This was carried down to the anterior rectus fascia. This was incised. Ruchi clamps were placed on the fascial edges and brought up into the wound. Stay sutures of 0 Vicryl placed. The posterior rectus sheath was identified and incised, and the peritoneal cavity was entered bluntly. At this time, a 10 mm blunt Sumit port was placed and adequate pneumoperitoneum established. Under direct visualization, an additional 5 mm epigastric and two 5 mm right subcostal ports were placed. The gallbladder was fairly tense and distended. I was able to grasp this, however. The hepatocystic triangle was thoroughly dissected out. There was aberrant anatomy. No posterior ductal structures. I could clearly see the common hepatic, common bile ducts medial. The distal half of the gallbladder was released from the cystic plate, elongating ductal window. The cystic duct and the cystic artery were clearly identified. Each was circumferentially dissected free. These were each doubly clipped and cut in standard fashion. Prior to this, we had critical view of safety. The gallbladder was then taken off the liver with the Humberto harmonic. This was retracted through the umbilical port. The right upper quadrant was rechecked and found to be hemostatic. No bleeding, no bile leak, and no bowel injury noted. I did not see any obvious acute evidence of diverticulitis in her colon externally. She had some prior scarring from her laparoscopic antireflux operation. At this time, pneumoperitoneum was released. All ports were removed. The fascia was closed with 0 Vicryl in [id number] fashion. The skin of all ports was closed with 4-0 Vicryl. She was taken to the recovery room in satisfactory condition. BIRDIE
== END 2018-09-04 10:40 | disposition home or self-care (01) | DRG 418 ==
LOC: ER 13:32 → MEDSURG 19:07
PROVIDERS: ADMIT Internal Medicine; ATTEND Internal Medicine
PROC: 0FT44ZZ Resection of Gallbladder, Percutaneous Endoscopic Approach (ICD-10-PCS; principal; 2018-09-03 08:30)
DX: K81.9 Cholecystitis, unspecified (principal); K57.92 Diverticulitis of intestine, part unspecified, without perforation or abscess without bleeding; K80.50 Calculus of bile duct without cholangitis or cholecystitis without obstruction; K21.9 Gastro-esophageal reflux disease without esophagitis; K44.9 Diaphragmatic hernia without obstruction or gangrene; Z66 Do not resuscitate; I10 Essential (primary) hypertension; I25.2 Old myocardial infarction; G57.93 Unspecified mononeuropathy of bilateral lower limbs
CPT/HCPCS: 83605; 83690; 80053; 81001; 85027; 83880; 74177; Q9967; J2405; 85025; 93005; 96365; 96374; 99223; 99239; 99285; J0295; J0330; J1650; J2550; J2710